=== PATIENT | female | born 1960 | race African-American/Black ===

== ENCOUNTER 2016-11-12 12:52 | Emergency (ER) | payer MEDICARE, MEDICAID, OTHER ==
[~2016-11-12] VITALS: Ht 170.2 cm; Wt 100.0 kg
[2016-11-12 12:52] VITALS: BP 157/72; PULSE 88; PULSE 97; RESP 18; TEMP 98.7; O2SAT 94
[~2016-11-12 12:52] MED LIST: BUSP15TA PO; DILA100C PO; HALO10 PO; HYDR-3533 PO; IBUP-238 PO; NAPR550 PO; PROZ20CA11 PO; RANI150 PO; TRAZ100T50 PO
[2016-11-12] MEDS ORDERED: SODIUM CHLOR 0.9% 1000 ML INJ 1,000 ML IV ONE (13:02)
[2016-11-12] MEDS ORDERED: SODIUM CHLORIDE 0.9% FLUSH 10 ML FLUSH IVF PRN (13:15)
--- NOTE | 2016-11-12 13:57 | RADRPT ---
EXAM DATE/TIME: 11/12/2016 13:38 [facility] COMPARISON: No previous studies available for comparison. INDICATIONS : Trauma; fall. RADIATION DOSE: 20.05 CTDIvol (mGy) MEDICAL HISTORY : Seizures. Cardiovascular disease SURGICAL HISTORY : None. ENCOUNTER: Initial ACUITY: 1 day PAIN SCALE: 5/10 LOCATION: Bilateral neck TECHNIQUE: Volumetric scanning of the cervical spine was performed. Multiplanar reconstructions in the sagittal, coronal and oblique axial planes were performed. Using automated exposure control and adjustment o f the mA and/or kV according to patient size, radiation dose was kept as low as reasonably achievable to obtain optimal diagnostic quality images. FINDINGS: There is straightening of the cervical lordosis. No prevertebral soft tissue swelling identified. Wel l-corticated ossific fragment superior to the tip of the odontoid process. Lateral masses of C1 align appropriately with C2. Multilevel osteophyte formation and disc space narrowing identified. No fract ures are seen. Emphysematous changes are seen at the lung apices. There is moderate canal stenosis se condary to a disc protrusion at C2-3-1 mild broad-based. Moderate to severe canal stenosis at C3-4 se condary to a diffuse disc bulge and osteophytic ridging. Mild canal narrowing at C4-5 is noted second alvino to posterior osteophytic ridge. At C6-7-1 diffuse disc osteophyte complex is noted with moderate to severe canal stenosis. The thyroid is prominent in size. CONCLUSION: No acute fracture or listhesis. Johan Rojas MD on November 12, 2016 at 13:54 Board Certified Radiologist. This report was verified electronically.
--- NOTE | 2016-11-12 14:14 | RADRPT ---
EXAM DATE/TIME: 11/12/2016 13:47 [facility] COMPARISON: No previous studies available for comparison. INDICATIONS : Pain from seizure related fall. MEDICAL HISTORY : None. SURGICAL HISTORY : None. ENCOUNTER: Initial ACUITY: 1 day PAIN SCORE: 4/10 LOCATION: Left shoulder. FINDINGS: Multiple view examination of the left shoulder demonstrates no evidence of fracture or dislocation. The glenohumeral and acromioclavicular joints are maintained. There is normal range of motion betwee n internal and external rotation. Bony mineralization is normal. CONCLUSION: Unremarkable examination of the left shoulder. Johan Rojas MD on November 12, 2016 at 14:12 Board Certified Radiologist. This report was verified electronically.
--- NOTE | 2016-11-12 14:15 | RADRPT ---
EXAM DATE/TIME: 11/12/2016 13:45 [facility] COMPARISON: CHEST SINGLE AP, July 13, 2014, 12:50. INDICATIONS : Chest pain. MEDICAL HISTORY : None. SURGICAL HISTORY : None. ENCOUNTER: Initial ACUITY: 1 day PAIN SCORE: 2/10 LOCATION: Bilateral chest FINDINGS: A single view of the chest demonstrates the lungs to be symmetrically aerated without evidence of mas s, infiltrate or effusion. The cardiomediastinal contours are unremarkable. Osseous structures are intact. CONCLUSION: No acute disease. Johan Rojas MD on November 12, 2016 at 14:12 Board Certified Radiologist. This report was verified electronically.
[2016-11-12 14:19] LABS: ALKALINE PHOSPHATASE 234 U/L (45-117); TOTAL BILIRUBIN ADULT 0.2 MG/DL (0.2-1.0)
[2016-11-12 14:23] LABS: ALT (GPT) 27 U/L (10-53); ANION GAP 7 MEQ/L (5-15); AST (GOT) 23 U/L (15-37); BICARBONATE 21.2 MEQ/L (21.0-32.0); BLOOD UREA NITROGEN 9 MG/DL (7-18); CHLORIDE 114 MEQ/L (98-107); GLOMERULAR FILTRATION RATE 92 ML/MIN (>89); POTASSIUM 4.1 MEQ/L (3.5-5.1); SODIUM (NA) 142 MEQ/L (136-145)
[2016-11-12] MEDS ORDERED: ZANT150T2 PO (14:28)
[2016-11-12] MEDS ORDERED: TRAZ50TA12 PO (14:28)
[2016-11-12] MEDS ORDERED: DILA100C PO (14:28)
[2016-11-12] MEDS ORDERED: NEBUMIS6 NEB (14:28)
[2016-11-12] MEDS ORDERED: LURA40 PO (14:28)
[2016-11-12] MEDS ORDERED: FLUO10TA PO (14:28)
[2016-11-12] MEDS ORDERED: ALBUAER3 INH (14:28)
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
[2016-11-12] MEDS ORDERED: FOSPHENYTOIN INJ 1,000 MGPE in SODIUM CHLORIDE 0.9% INJ 50 ML IV ONE (14:30)
[2016-11-12 15:00] VITALS: BP 135/64; PULSE 78; RESP 16; O2SAT 100
[2016-11-12] MEDS ORDERED: KETOROLAC TROMETHAMINE 30 MG/ML (IVP) VIAL IV PUSH ONE (15:00)
[2016-11-12] MEDS ORDERED: diphenhydrAMINE HCL 50 MG/ML VIAL IV PUSH ONE (15:30)
== END 2016-11-12 16:49 | disposition home or self-care (01) ==
LOC: NEPE 12:52
DX: G40.909 Epilepsy, unspecified, not intractable, without status epilepticus (principal); M25.512 Pain in left shoulder; R07.9 Chest pain, unspecified; J44.9 Chronic obstructive pulmonary disease, unspecified; I25.2 Old myocardial infarction; W19.XXXA Unspecified fall, initial encounter; Y93.9 Activity, unspecified; Y92.9 Unspecified place or not applicable; Y99.9 Unspecified external cause status
CPT/HCPCS: 71010; 72125; 73030; 80053; 80185; 96361; 96365; 96375; 99284; J1200; J1885; J7030; Q2009

== ENCOUNTER 2017-05-18 15:48 | Emergency (ER) | payer MEDICARE, MEDICAID ==
[~2017-05-18] VITALS: Ht 172.7 cm; Wt 90.0 kg
[~2017-05-18 15:48] MED LIST changes: +ALBUAER3 INH; -BUSP15TA PO; +FLUO10TA PO; -HALO10 PO; -HYDR-3533 PO; -IBUP-238 PO; +LURA40 PO; -NAPR550 PO; +NEBUMIS6 NEB; -PROZ20CA11 PO; -RANI150 PO; -TRAZ100T50 PO; +TRAZ50TA12 PO; +ZANT150T2 PO
[2017-05-18 16:00] VITALS: BP 134/93; PULSE 107; RESP 18; TEMP 98.3; O2SAT 95
[2017-05-18] MEDS ORDERED: SODIUM CHLORIDE 0.9% FLUSH 10 ML FLUSH IVF PRN (16:45)
[2017-05-18 16:46] VITALS: RESP 18; O2SAT 98
[2017-05-18] MEDS ORDERED: FURO1TAB62 PO (16:57)
[2017-05-18] MEDS ORDERED: TIZA4CAP3 PO (16:57)
[2017-05-18] MEDS ORDERED: PRAV20TA PO (16:57)
[2017-05-18] MEDS ORDERED: IBUP-232 PO (16:57)
[2017-05-18 17:12] LABS: BASOPHIL % 0.4 % (0.0-2.0); EOSINOPHIL % 0.5 % (0.0-4.0); HEMO FLAGS DIFF FINAL; LYMPH % 27.8 % (9.0-44.0); LYMPHOCYTE # 2.1 TH/MM3 (1.0-4.8); MEAN CELL VOLUME 75.8 FL (80.0-100.0); MEAN CORPUSCULAR HEMOGLOBIN 23.7 PG (27.0-34.0); MEAN CORPUSCULAR HGB CONC 31.3 % (32.0-36.0); MONO % 6.3 % (0.0-8.0); PLATELET COUNT 193 TH/MM3 (150-450); RED BLOOD COUNT 5.41 MIL/MM3 (4.00-5.30); RED CELL DISTRIBUTION WIDTH 16.5 % (11.6-17.2); WHITE BLOOD COUNT 7.6 TH/MM3 (4.0-11.0)
[2017-05-18 17:27] LABS: ALT (GPT) 28 U/L (10-53)
[2017-05-18 17:29] LABS: ALKALINE PHOSPHATASE 340 U/L (45-117); TOTAL BILIRUBIN ADULT 0.3 MG/DL (0.2-1.0)
[2017-05-18] MEDS ORDERED: ACETAMINOPHEN/HYDROcodone 325 MG/5 MG TAB PO ONE (17:45)
[2017-05-18 17:46] LABS: ANION GAP 10 MEQ/L (5-15); AST (GOT) 30 U/L (15-37); BICARBONATE 20.1 MEQ/L (21.0-32.0); BLOOD UREA NITROGEN 6 MG/DL (7-18); CHLORIDE 108 MEQ/L (98-107); GLOMERULAR FILTRATION RATE 83 ML/MIN (>89); POTASSIUM 4.4 MEQ/L (3.5-5.1); SODIUM (NA) 138 MEQ/L (136-145)
[2017-05-18] MEDS ORDERED: PHENYTOIN INJ 250 MG/5 ML VIAL IV ONE (18:30)
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
--- NOTE | 2017-05-18 18:53 | RADRPT ---
EXAM DATE/TIME: 05/18/2017 18:35 [facility] COMPARISON: No previous studies available for comparison. INDICATIONS : Pain from seizure related fall. MEDICAL HISTORY : Seizures. SURGICAL HISTORY : None. ENCOUNTER: Initial ACUITY: 1 day PAIN SCORE: 8/10 LOCATION: Lumbar. FINDINGS: Two view examination was performed. There are five non-rib bearing vertebral bodies. The vertebral bodies are in normal alignment without evidence of subluxation or scoliosis. The disc spaces are hailey ntained. The pedicles are intact. Bony mineralization is normal. No fracture is identified. CONCLUSION: Negative two-view trauma study. Abilio Rodriges MD on May 18, 2017 at 18:51 Board Certified Radiologist. This report was verified electronically.
[2017-05-18] MEDS ORDERED: PHENYTOIN INJ 500 MG in SODIUM CHLORIDE 0.9% INJ 100 ML IV ONE (19:00)
[2017-05-18 19:18] VITALS: BP 103/59; PULSE 74; RESP 14; O2SAT 96
[2017-05-18] MEDS ORDERED: HYDR-3533 PO (19:38)
--- NOTE | 2017-05-19 09:24 | EKG ---
Date Performed: 05/18/2017 Time Performed: 16:00:26 PTAGE: 56 years EKG: SINUS TACHYCARDIA PATTERN CONSISTENT WITH PULMONARY DISEASE POSSIBLE RIGHT VENTRICULAR HYPE RTROPHY ABNORMAL ECG PREVIOUS TRACING : 07/13/2014 11.53 Since prior tracing, sinus rate is faster. DOCTOR: Alec Wood Interpretating Date/Time 05/19/2017 09:22:24
== END 2017-05-18 20:56 | disposition home or self-care (01) ==
LOC: NEPC 15:48
DX: G40.909 Epilepsy, unspecified, not intractable, without status epilepticus (principal); S30.0XXA Contusion of lower back and pelvis, initial encounter; R94.31 Abnormal electrocardiogram [ECG] [EKG]; M54.5 Low back pain; J44.9 Chronic obstructive pulmonary disease, unspecified; Z72.0 Tobacco use; X58.XXXA Exposure to other specified factors, initial encounter
CPT/HCPCS: 72100; 80053; 80185; 85025; 93005; 99285; J1165

== ENCOUNTER 2017-06-03 21:42 | Emergency (ER) | payer MEDICARE, MEDICAID ==
[~2017-06-03] VITALS: Ht 167.6 cm; Wt 90.0 kg
[~2017-06-03 21:42] MED LIST changes: +FURO1TAB62 PO; +HYDR-3533 PO; +IBUP-232 PO; -LURA40 PO; -NEBUMIS6 NEB; +PRAV20TA PO; +TIZA4CAP3 PO; -TRAZ50TA12 PO; -ZANT150T2 PO
[2017-06-03 21:46] VITALS: RESP 20
[2017-06-03 21:51] VITALS: BP 165/83; PULSE 82; RESP 18; TEMP 97.7; O2SAT 91; O2SAT 92
[2017-06-03] MEDS ORDERED: PROCHLORPERAZINE INJ 10 MG/2 ML VIAL IV PUSH ONE (22:00)
[2017-06-03] MEDS ORDERED: SODIUM CHLORIDE 0.9% FLUSH 10 ML FLUSH IV FLUSH PRN (22:00)
[2017-06-03] MEDS ORDERED: LIDOCAINE VISCOUS 2% SOLN 15 ML UDC PO ONE (22:00)
[2017-06-03] MEDS ORDERED: diphenhydrAMINE HCL 50 MG/ML VIAL IV PUSH ONE (22:00)
[2017-06-03] MEDS ORDERED: SODIUM CHLOR 0.9% 1000 ML INJ 1,000 ML IV ONE (22:00)
[2017-06-03] MEDS ORDERED: ALUMINUM/MAGNESIUM/SIMETH 30 ML CUP PO ONE (22:00)
[2017-06-03] MEDS ORDERED: GAVISUS2 PO (22:34)
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
[2017-06-03 22:41] LABS: BASOPHIL % 0.3 % (0.0-2.0); EOSINOPHIL % 0.2 % (0.0-4.0); HEMATOCRIT 44.3 % (35.0-46.0); HEMO FLAGS DIFF FINAL; LYMPH % 16.5 % (9.0-44.0); LYMPHOCYTE # 1.9 TH/MM3 (1.0-4.8); MEAN CELL VOLUME 75.5 FL (80.0-100.0); MEAN CORPUSCULAR HEMOGLOBIN 23.8 PG (27.0-34.0); MEAN CORPUSCULAR HGB CONC 31.5 % (32.0-36.0); MONO % 4.9 % (0.0-8.0); NEUT % 78.1 % (16.0-70.0); PLATELET COUNT 253 TH/MM3 (150-450); RED BLOOD COUNT 5.87 MIL/MM3 (4.00-5.30); RED CELL DISTRIBUTION WIDTH 15.8 % (11.6-17.2); WHITE BLOOD COUNT 11.5 TH/MM3 (4.0-11.0)
[2017-06-03 23:01] LABS: ANION GAP 9 MEQ/L (5-15); AST (GOT) 35 U/L (15-37); BLOOD UREA NITROGEN 12 MG/DL (7-18); CHLORIDE 107 MEQ/L (98-107); GLOMERULAR FILTRATION RATE 92 ML/MIN (>89); POTASSIUM 3.9 MEQ/L (3.5-5.1); SODIUM (NA) 140 MEQ/L (136-145)
[2017-06-03 23:04] LABS: ALKALINE PHOSPHATASE 403 U/L (45-117); ALT (GPT) 34 U/L (10-53); TOTAL BILIRUBIN ADULT 0.4 MG/DL (0.2-1.0)
== END 2017-06-04 05:11 | disposition home or self-care (01) ==
LOC: NEPE 21:42
DX: R10.9 Unspecified abdominal pain (principal); R11.2 Nausea with vomiting, unspecified; J44.9 Chronic obstructive pulmonary disease, unspecified; F20.9 Schizophrenia, unspecified; Z72.0 Tobacco use
CPT/HCPCS: 80053; 83690; 85025; 96374; 96375; 99284; J0780; J1200; J7030

== ENCOUNTER 2017-06-13 14:22 | Emergency (ER) | payer MEDICARE, MEDICAID ==
[~2017-06-13] VITALS: Ht 170.2 cm; Wt 98.0 kg
[~2017-06-13 14:22] MED LIST changes: +GAVISUS2 PO
[2017-06-13 14:25] VITALS: BP 131/66; PULSE 94; RESP 20; TEMP 99.8; O2SAT 89
[2017-06-13] MEDS ORDERED: MORPHINE SULFATE 4 MG/ML INJ IV PUSH ONE (14:45)
[2017-06-13] MEDS ORDERED: ONDANSETRON HCL 4 MG/2 ML VIAL IVP ONE (14:45)
[2017-06-13] MEDS ORDERED: SODIUM CHLORIDE 0.9% FLUSH 10 ML FLUSH IV FLUSH PRN (14:45)
[2017-06-13] MEDS ORDERED: KETOROLAC TROMETHAMINE 30 MG/ML (IVP) VIAL IV PUSH ONE (14:45)
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
[2017-06-13 15:22] LABS: AUTOMATED NEUTROPHIL # 8.1 TH/MM3 (1.8-7.7); BASOPHIL % 0.3 % (0.0-2.0); EOSINOPHIL % 0.3 % (0.0-4.0); HEMATOCRIT 40.7 % (35.0-46.0); HEMO FLAGS DIFF FINAL; LYMPH % 13.3 % (9.0-44.0); LYMPHOCYTE # 1.4 TH/MM3 (1.0-4.8); MEAN CELL VOLUME 74.6 FL (80.0-100.0); MEAN CORPUSCULAR HEMOGLOBIN 23.5 PG (27.0-34.0); MEAN CORPUSCULAR HGB CONC 31.5 % (32.0-36.0); MONO % 8.5 % (0.0-8.0); NEUT % 77.6 % (16.0-70.0); PLATELET COUNT 263 TH/MM3 (150-450); RED BLOOD COUNT 5.45 MIL/MM3 (4.00-5.30); RED CELL DISTRIBUTION WIDTH 15.2 % (11.6-17.2); WHITE BLOOD COUNT 10.5 TH/MM3 (4.0-11.0)
[2017-06-13 15:39] LABS: ALT (GPT) 18 U/L (10-53); ANION GAP 7 MEQ/L (5-15); AST (GOT) 12 U/L (15-37); BICARBONATE 24.5 MEQ/L (21.0-32.0); BLOOD UREA NITROGEN 8 MG/DL (7-18); CHLORIDE 108 MEQ/L (98-107); GLOMERULAR FILTRATION RATE 90 ML/MIN (>89); POTASSIUM 4.2 MEQ/L (3.5-5.1); SODIUM (NA) 139 MEQ/L (136-145)
[2017-06-13 15:40] LABS: ALKALINE PHOSPHATASE 309 U/L (45-117); TOTAL BILIRUBIN ADULT 0.4 MG/DL (0.2-1.0)
[2017-06-13 15:47] VITALS: BP 144/67; PULSE 81; RESP 16; O2SAT 94
--- NOTE | 2017-06-13 16:10 | RADRPT ---
EXAM DATE/TIME: 06/13/2017 15:26 [facility] COMPARISON: CT ABDOMEN & PELVIS W/O CONTRAST, March 02, 2010, 11:19. INDICATIONS : Right flank pain ORAL CONTRAST: No oral contrast ingested. RADIATION DOSE: 19.19 CTDIvol (mGy) MEDICAL HISTORY : Cardiovascular disease. Chronic obstructive pulmonary disease. SURGICAL HISTORY : Hysterectomy. ENCOUNTER: Initial ACUITY: 1 day PAIN SCALE: 10/10 LOCATION: Right flank TECHNIQUE: Volumetric scanning of the abdomen and pelvis was performed. Using automated exposure control and ad justment of the mA and/or kV according to patient size, radiation dose was kept as low as reasonably achievable to obtain optimal diagnostic quality images. DICOM format image data is available electro nically for review and comparison. FINDINGS: LOWER LUNGS: Mild bibasilar ground glass opacities LIVER: Homogeneous density without lesion. There is no dilation of the biliary tree. No calcified gallston es. SPLEEN: Normal size without lesion. PANCREAS: Within normal limits. KIDNEYS: Stable dystrophic appearing parenchymal calcifications in the superior pole and mid right kidney. Rig ht kidney is small in size with cortical scarring. There is no hydronephrosis or radiopaque central r enal calculi. Right ureter is normal in caliber throughout. Previously noted mild perinephric strandi ng in the right has resolved. Left kidney is normal in appearance without evidence for radiopaque jane al calculi or hydronephrosis. ADRENAL GLANDS: Within normal limits. VASCULAR: There is no aortic aneurysm. BOWEL/MESENTERY: The stomach, small bowel, and colon demonstrate no acute abnormality. Appendix is visualized and norm al in appearance. There is no free intraperitoneal air or fluid. Several subcentimeter posterior mes enteric nodes are unchanged from prior exam. ABDOMINAL WALL: Small fat containing periumbilical anterior abdominal wall hernia. Very small adjacent right anterior abdominal wall hernia. RETROPERITONEUM: Uterus is surgically absent. BLADDER: Bladder is decompressed. No evidence for radiopaque bladder calculi. REPRODUCTIVE: Within normal limits. INGUINAL: There is no lymphadenopathy or hernia. MUSCULOSKELETAL: Within normal limits for patient age. CONCLUSION: 1. No significant interval change from remote CT examination of the abdomen and pelvis. 2. Stable appearing small right kidney with stable dystrophic calcifications. No evidence for central radiopaque renal calculi or obstructive uropathy. 3. Normal appendix. 4. Stable airspace disease at the lung bases, likely atelectasis/scarring. 5. Additional stable ancillary findings, as above. Nasir Parker MD on June 13, 2017 at 15:52 Board Certified Radiologist. This report was verified electronically.
[2017-06-13 16:31] LABS: BACTERIA, URINE MANY /hpf; BLOOD, URINE MOD (NEG); COMMENT (UR) CULTURE INDICATED; CULTURE IF INDICATED CULTURE INDICATED; GLUCOSE,URINE NEG (NEG); HYALINE CAST, URINE 5 /lpf (RARE); KETONE, URINE TRACE mg/dL (NEG); MUCUS URINE FEW /lpf (OCC); NITRITE,URINE NEG (NEG); SQUAMOUS EPITHELIAL CELL URINE 15 /hpf (0-5); URINE COLOR DARK-YELLOW (YELLW/STRAW)
[2017-06-13] MEDS ORDERED: CIPROFLOXACIN 400 MG PREMIX 200 ML IV ONE (16:45)
[2017-06-13] MEDS ORDERED: MACR100C2 PO (17:04)
[2017-06-13] MEDS ORDERED: oxyCODONE/ACETAMINOPHEN 5 MG/325 MG TAB PO ONE (18:00)
[2017-06-13] MEDS ORDERED: PERC5TAB12 PO (18:01)
[2017-06-13 19:01] VITALS: BP 149/82; PULSE 100; RESP 17; O2SAT 94
[2017-06-14] MEDS ORDERED: PHEN-510 PO (22:40)
[2017-06-14] MEDS ORDERED: MACR100C2 PO (22:40)
== END 2017-06-13 19:34 | disposition home or self-care (01) ==
LOC: NEPE 14:22
DX: N12 Tubulo-interstitial nephritis, not specified as acute or chronic (principal); I25.10 Atherosclerotic heart disease of native coronary artery without angina pectoris; J44.9 Chronic obstructive pulmonary disease, unspecified; I25.2 Old myocardial infarction; F20.9 Schizophrenia, unspecified; F17.210 Nicotine dependence, cigarettes, uncomplicated; A49.8 Other bacterial infections of unspecified site; Z16.11 Resistance to penicillins; Z16.23 Resistance to quinolones and fluoroquinolones; Z16.29 Resistance to other single specified antibiotic
CPT/HCPCS: 74176; 80053; 81001; 83605; 83690; 85025; 87077; 87086; 87186; 96365; 96375; 99285; J0744; J1885; J2270; J2405

== ENCOUNTER 2017-06-14 20:34 | Emergency (ER) | payer MEDICARE, MEDICAID ==
[~2017-06-14] VITALS: Ht 170.2 cm; Wt 97.5 kg
[~2017-06-14 20:34] MED LIST changes: -HYDR-3533 PO; +MACR100C2 PO; +PERC5TAB12 PO
[2017-06-14 20:39] VITALS: BP 145/76; PULSE 94; RESP 20; TEMP 98.6; O2SAT 96
[2017-06-14] MEDS ORDERED: PHENAZOPYRIDINE HCL 200 MG TAB PO ONE (21:15)
[2017-06-14 21:47] LABS: AUTOMATED NEUTROPHIL # 9.4 TH/MM3 (1.8-7.7); BASOPHIL % 0.2 % (0.0-2.0); EOSINOPHIL % 0.3 % (0.0-4.0); HEMATOCRIT 40.5 % (35.0-46.0); HEMO FLAGS DIFF FINAL; LYMPH % 13.9 % (9.0-44.0); LYMPHOCYTE # 1.7 TH/MM3 (1.0-4.8); MEAN CELL VOLUME 74.8 FL (80.0-100.0); MEAN CORPUSCULAR HEMOGLOBIN 23.1 PG (27.0-34.0); MEAN CORPUSCULAR HGB CONC 30.9 % (32.0-36.0); MONO % 9.8 % (0.0-8.0); NEUT % 75.8 % (16.0-70.0); PLATELET COUNT 268 TH/MM3 (150-450); RED BLOOD COUNT 5.42 MIL/MM3 (4.00-5.30); RED CELL DISTRIBUTION WIDTH 15.3 % (11.6-17.2); WHITE BLOOD COUNT 12.4 TH/MM3 (4.0-11.0)
[2017-06-14] MEDS ORDERED: NITROFURANTOIN MONOHYD MACROCR 100 MG CAP PO ONE (22:15)
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
[2017-06-14] MEDS ORDERED: PHEN-510 PO (22:40)
[2017-06-14] MEDS ORDERED: MACR100C2 PO (22:40)
== END 2017-06-14 23:15 | disposition home or self-care (01) ==
LOC: NEPE 20:34
DX: N39.0 Urinary tract infection, site not specified (principal); R11.0 Nausea; M06.9 Rheumatoid arthritis, unspecified; F31.9 Bipolar disorder, unspecified; F41.9 Anxiety disorder, unspecified; J44.9 Chronic obstructive pulmonary disease, unspecified; I25.10 Atherosclerotic heart disease of native coronary artery without angina pectoris; F20.9 Schizophrenia, unspecified; F17.200 Nicotine dependence, unspecified, uncomplicated
CPT/HCPCS: 85025; 99283